=== PATIENT | female | born 1995 | race Caucasian/White ===

== ENCOUNTER 2021-01-11 07:25 | Emergency (ER) | payer MEDICAID, SELFPAY ==
[2021-01-11 07:27] VITALS: BP 122/61; PULSE 87; RESP 16; TEMP 36.2; O2SAT 100; BMI 25.7
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
--- NOTE | 2021-01-11 07:34 | US_ITS ---
STUDY: ABDOMINAL ULTRASOUND - RIGHT UPPER QUADRANT REASON FOR VISIT: Female, 25 years old PAIN TECHNIQUE: Ultrasound evaluation of the right upper quadrant was performed with real-time and static alfonso-scale imaging. TECHNICAL QUALITY: Adequate. COMPARISON: None. FINDINGS: Liver: The liver measures 15.3 cm. There is normal echogenicity of the liver. The bile ducts are within normal limits. There is hepatic color flow. The direction of portal flow is hepatopetal. There is no demonstrated mass lesion. Gallbladder: Normal distended gallbladder. The gallbladder wall measures 2 mm. There is a negative sonographic Larose''s sign. There is no pericholecystic fluid. There is biliary sludge dependent within the gallbladder And a 2 x 1.8 cm stone. There are small echogenic foci in the gallbladder wall with comet tail artifact are in keeping with adenomyomatosis. Extrahepatic biliary duct: The cystic duct appears dilated and contains debris/sludge. The common bile duct measures 6.7 mm and tapers gradually. Pancreas: Normal size of the head, body and tail of the pancreas. There is normal echogenicity of the pancreas. There is no demonstrated pancreatic mass or cyst. Right Kidney: Normal size of the right kidney. The right kidney measures 10.8 cm. Normal renal cortex. The right cortex measures 1.2 cm. There is no demonstrated renal mass or cyst. There is no right hydronephrosis. US/Gallbladder IMPRESSION: 1. Cystic duct appears dilated and contains debris/sludge. The CBD is just above the upper limits of normal, question CBD obstruction. Correlate clinically and with MRCP if felt to be clinically warranted. 2. No evidence of acute cholecystitis. There is gallbladder sludge and a single large stone. 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 Electronically Signed: Kali Angulo MD at 10:10 EDT Tel , Service support ,
[2021-01-11 08:00] LABS: Bacteria 0 SEEN /hpf (None Seen); Mucous, Urine 0 SEEN /hpf (<or=2+); Red Blood Cells-Urine 0 SEEN /hpf (0-5)
[2021-01-11 08:07] LABS: Color, Urine Yellow (Yellow); Glucose, Dipstick Normal (Normal); Ketone-Dipstick Negative (Negative); Leukocyte Esterase-Dipstick 25 /ul (Negative); Nitrite-Dipstick Negative (Negative); Occult Blood-Urine 25 /ul (Negative); Protein-Dipstick Negative (Negative); Urine Bilirubin Dipstick Negative (Negative); Urine Clarity Sl. Cloudy (Clear); Urine Urobilinogen Normal (Normal)
[2021-01-11] MEDS: Morphine 4 MG/ML Syringe IV (08:15)
[2021-01-11] MEDS: Ketorolac 15 MG/ML Vial IV (08:15)
[2021-01-11 08:16] LABS: Absolute Lymphocyte Count 2.64 X10^3/uL (0.83-4.51); Absolute Neutrophil Count 2.7 X10^3/uL (2.0-7.7); Basophil# 0.03 X10^3/uL; Basophil% 0.5 % (0-1); Eosinophil# 0.19 X10^3/uL; Eosinophils% 3.2 % (0-5); Hematocrit 42.8 % (37-47); Hemoglobin 13.7 g/dL (12.0-15.0); Lymphocyte # 2.64 X10^3/ul (0.83-4.51); Lymphocyte % 43.8 % (19-41); Mean Corpuscular Hgb 27.1 pg (27.0-32.0); Mean Corpuscular Volume 84.8 fL (81-99); Monocyte# 0.49 X10^3/uL; Monocyte% 8.1 % (0-10); NRBC Flagged by Analyzer 0 % (0-5); Neutrophil # 2.67 X10^3/uL (2.7-7.7); Neutrophil % 44.2 % (47-70); Platelet Count 247 K/mm3 (150-450); RBC Distribution Width CV 12.1 % (11.6-14.6); Red Blood Count 5.05 M/mm3 (4.2-5.4)
[2021-01-11 08:16] LABS: Squamous Epithelial Cells - UA 0-5 SEEN /hpf (5-10); White Blood Cells 0-5 SEEN /hpf (0-5)
[2021-01-11] MEDS: Ondansetron 4 MG/2 ML Vial IV (08:16)
[2021-01-11] MEDS: 0.9% Normal Saline 1,000 ML 1000 ML IV (08:16)
[2021-01-11 08:17] LABS: Internal QC Validated? YES +Cl - CLEAR BKGD; Pregnancy, Urine Negative Negative
[2021-01-11 08:25] VITALS: BP 117/70; O2SAT 100
[2021-01-11 08:31] LABS: AST(SGOT) 19 U/L (15-37); Alanine Aminotransfer ALT/SGPT 20 U/L (13-56); Albumin, Serum 3.6 g/dL (3.2-5.0); Alkaline Phosphatase 109 U/L (45-117); Anion Gap 5 (5-15); BUN 13 mg/dL (7-18); BUN/Creat Ratio 17.6 RATIO (10-20); Bilirubin, Direct 0.15 mg/dL (0.00-0.30); Calcium,Total 8.5 mg/dL (8.5-10.1); Chloride 107 mmol/L (98-107); Creatinine, Serum 0.74 mg/dL (0.55-1.02); EST Glomerular Filtration Rate 100 mL/min (>60); Est Glom Filt Rate - Afr Amer 121 mL/min (>60); Estimated Creatinine Clearance 94.46 ml/min; Globulin 3.9 g/dL (2.2-4.2); Glucose 88 mg/dL (74-106); Lipase 111 U/L (73-393); Potassium 3.7 mmol/L (3.5-5.1); Protein, Total 7.5 g/dL (6.4-8.2); Sodium Level 139 mmol/L (136-145)
== END 2021-01-11 10:25 | disposition home or self-care (01) ==
LOC: ED 07:48
PROVIDERS: Emergency Provider Emergency Medicine; PCP Student in an Organized Health Care Education/Training Program
DX: K80.50 Calculus of bile duct without cholangitis or cholecystitis without obstruction (principal)
CPT/HCPCS: 76705; 80048; 80076; 81001; 81025; 83690; 85025; 96361; 96374; 96375; 99283; J7030; J2405

== ENCOUNTER 2021-05-17 22:04 | Emergency (ER) | payer MEDICAID, SELFPAY ==
[2021-05-17 22:06] VITALS: BP 126/55; PULSE 80; RESP 18; TEMP 36.7; O2SAT 100; BMI 23.0
--- NOTE | 2021-05-17 22:12 | EDS_ITS ---
HPI History of Present Illness Chief Complaint: Laceration Narrative Narrative: Patient is a 25-year-old female who states she was cutting lettuce approximately 2 hours ago. She states by accident she cut the side of her left index finger. She states there is been bleeding since the cut despite having a bandage and she is concerned she may need sutures for this. She reports her tetanus status is up-to-date and she denies taking any blood thinners. [facility] Medical History Lupus Home Medications hydrocodone-acetaminophen 1 tab PO Q6H PRN PRN 3 Days #10 tablet 01/11/21 [Rx Last Taken Unknown] ondansetron 4 mg PO Q8H PRN PRN #10 tab 01/11/21 [Rx Last Taken Unknown] Allergy/AdvReac Type Severity Reaction Status Date / Time No Known Allergies Allergy Verified 05/17/21 22:08 Social History Smoking Status: Never smoker ROS ROS ED Constitutional Constitutional ED: Denies chills or fever(s) Cardiovascular Cardiovascular: Denies chest pain Respiratory/Chest Respiratory/Chest: Denies cough or dyspnea Gastrointestinal Gastrointestinal: Denies abdominal pain, diarrhea, nausea or vomiting Genitourinary Genitourinary ED: Denies dysuria Musculoskeletal Musculoskeletal: Denies myalgias Integumentary Reports other Details: Positive left index finger laceration ; Denies rash Neurologic Neurologic: Denies headache(s) Hematologic/Lymphatic Hematologic/Lymphatic: Denies easy bleeding or easy bruising EXAM Physical Exam Const Vital Signs: 05/17/21 22:06 Temperature 98.0 F Temperature Source Temporal Pulse Rate 80 Respiratory Rate 18 Blood Pressure 126/55 H Blood Pressure Mean 78 Pulse Ox 100 Oxygen Delivery Method Room Air Positive well nourished and well developed General Appearance ED: well developed HEENT Reports moist mucous membranes Eyes PERRL and EOMs intact bilaterally Neck full ROM and supple Resp normal respiratory effort and clear to auscultation bilaterally Cardio regular rate and regular rhythm Rate: regular rate Extremity Extremity Narrative: Left upper extremity is neurovascularly intact. Patient has a laceration to the lateral aspect of the left distal index finger near the nail bed but does not involve the nailbed. No bony deformity no ligamentous or tendon laxity noted. Neuro oriented x3, CN's II-XII intact bilaterally, moves all extremities, no focal motor deficits and no sensory deficits noted Sensorium / Orientation: alert Motor Exam: strength 5/5 throughout Psych mental status grossly normal Skin Skin Narrative: Patient has a linear 1 cm laceration to the lateral aspect of her left index finger. The laceration is lateral to the nailbed and horizontal in appearance. The wound is dermal layer deep with minimal ooze of blood and no foreign body. MDM MDM MDM Narrative Medical decision making narrative: Patient presented to the ER with a laceration to the left index finger. She had no signs of infection no signs of bony injury tendon or ligamentous injury so there is no need for imaging or laboratory studies. She also reported her tetanus status is up-to-date and did not want this given at this time. The wound was cleaned with chlorhexidine and then Dermabond was applied. The wound edges were held together good approximation and patient tolerated procedure well without complication. Now the wound is closed and there is no persistent bleeding patient is safe for discharge Discharge Plan Triage Chief Complaint: Laceration ED Provider: Horace Maldonado Dx/Rx/DC Orders Clinical Impression: Laceration of left index finger Instructions: ED Laceration, Extremity: Skin Glue Prescriptions: No Action hydrocodone-acetaminophen [hydrocodone-acetaminophen] 1 TABLET tablet 1 tab PO Q6H PRN PRN (Reason: Pain) 3 Days Qty: 10 RF: 0 ondansetron [ondansetron] 4 MG tablet 4 mg PO Q8H PRN PRN (Reason: Nausea) Qty: 10 RF: 0 Primary Care Provider: Ventura Marin Referrals: Ventura Marin DO [Primary Care Provider] - Disposition Disposition: Home, Self Care
== END 2021-05-17 22:49 | disposition home or self-care (01) ==
LOC: ED 22:38
PROVIDERS: Emergency Provider Emergency Medicine; PCP Student in an Organized Health Care Education/Training Program
DX: S61.211A Laceration without foreign body of left index finger without damage to nail, initial encounter (principal); W45.8XXA Other foreign body or object entering through skin, initial encounter
CPT/HCPCS: G0168; 99282

== ENCOUNTER 2022-02-10 23:16 | Emergency (ER) | payer MEDICAID, SELFPAY ==
[2022-02-10 23:17] VITALS: BP 126/69; PULSE 96; RESP 18; TEMP 36.1; O2SAT 97; BMI 24.4
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
[2022-02-11 00:46] LABS: Internal QC Validated? YES +Cl - CLEAR BKGD; Pregnancy, Urine Negative Negative
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
[2022-02-11 01:52] VITALS: BP 115/64; PULSE 87; RESP 14; O2SAT 100
== END 2022-02-11 01:53 | disposition home or self-care (01) ==
PROVIDERS: Emergency Provider Emergency Medicine; PCP Student in an Organized Health Care Education/Training Program; Visit Provider Emergency Medicine
DX: S09.90XA Unspecified injury of head, initial encounter (principal); S40.012A Contusion of left shoulder, initial encounter; S60.222A Contusion of left hand, initial encounter; Y04.8XXA Assault by other bodily force, initial encounter
CPT/HCPCS: 70450; 71101; 72072; 73030; 73130; 81025; 99285

== ENCOUNTER 2022-06-18 11:40 | Emergency (ER) | payer MEDICAID, SELFPAY ==
[2022-06-18 11:41] VITALS: BP 115/68; PULSE 125; RESP 16; TEMP 37.7; O2SAT 95; BMI 41.4
--- NOTE | 2022-06-18 12:29 | EDS_ITS ---
HPI History of Present Illness Chief Complaint: Fever Informant: patient Narrative Narrative: 26-year-old female presenting to the emergency room with a chief complaint of fever vomiting and diarrhea. Patient states that on Friday she woke with fever. She states her T-max of temporal temperature was 105.1 degrees. She states that she cannot swallow pills so it is hard for her to find medications to take but she has been using some Tylenol. Noted temperature in triage of 99.8. She notes that her lips are cracked and dried. She notes that she is making very little urine. She notes a sore throat and that her children had strep throat last week but did not have any of these other symptoms. She notes that she has been sleeping more than normal. She also associates with this a cough that is nonproductive. [facility] Medical History (Updated 06/18/22 @ 14:[address] Yazan Beach DO) Asthma Lupus Home Medications ondansetron HCl 4 mg tablet 4 mg PO Q6H PRN nausea and vomiting #15 tabs 06/18/22 [Rx Last Taken Unknown] Allergy/AdvReac Type Severity Reaction Status Date / Time No Known Allergies Allergy Verified 06/18/22 11:43 Social History (Updated 06/18/22 @ 12:[address] Yazan Beach DO) Smoking Status: Never smoker substance use type: does not use ROS ROS ED Constitutional Constitutional ED: Reports chills, fever(s) and other Details: Increased sleep ; Denies weight loss Eyes Eyes: Denies change in vision or diplopia ENT ENT ED: Reports sore throat; Denies ear pain or rhinorrhea Cardiovascular Cardiovascular: Denies chest pain, orthopnea, palpitations or racing heartbeat Respiratory/Chest Respiratory/Chest: Reports cough; Denies dyspnea or orthopnea Gastrointestinal Gastrointestinal: Reports diarrhea, nausea and vomiting; Denies abdominal pain Genitourinary Genitourinary ED: Denies dysuria, hematuria or urinary frequency Musculoskeletal Musculoskeletal: Denies arthralgias or myalgias Integumentary Denies abscess or rash Neurologic Neurologic: Denies headache(s) or weakness Psychiatric Psychiatric: Denies anxiety, depression, suicidal ideation or suicidal thoughts Endocrine Endocrinology: Denies polydipsia, polyphagia or polyuria Allergic/Immunologic Allergic/Immunologic ED: Denies mouth swelling, tongue swelling or urticaria EXAM Physical Exam Const Vital Signs: 06/18/22 11:41 06/18/22 12:53 06/18/22 12:53 Temperature 99.8 F H Temperature Source Temporal Pulse Rate 125 H 83 Respiratory Rate 16 16 Respiratory Effort Normal Respiratory Pattern Normal Blood Pressure 115/68 Blood Pressure Mean 83 Pulse Ox 95 94 Oxygen Delivery Method Room Air Room Air 06/18/22 14:51 Temperature Temperature Source Pulse Rate 96 Respiratory Rate 15 Respiratory Effort Respiratory Pattern Blood Pressure 110/70 Blood Pressure Mean Pulse Ox 98 Oxygen Delivery Method Positive well nourished and well developed General Appearance ED: well developed HEENT Reports normocephalic, head/scalp atraumatic and dry mucous membranes Mouth ED: Yes dry mucous membranes Mouth: dry mucous membranes Eyes PERRL and EOMs intact bilaterally Neck no lymphadenopathy, supple and no JVD Resp normal respiratory effort and clear to auscultation bilaterally Cardio regular rate and no murmurs Rate: tachycardic GI normal to inspection, nondistended, normoactive bowel sounds and non-tender Palpation: soft Back/Spine no CVA tenderness and normal ROM Extremity normal to inspection General Extremety ED: Negative for edema General Extremity: Negative for edema Neuro oriented x3 and CN's II-XII intact bilaterally Sensorium / Orientation: alert Motor Exam: strength 5/5 throughout Psych mental status grossly normal Mood & Affect: Negative for depressed or tearful Skin no rashes or lesions noted and no wounds MDM MDM MDM Narrative Medical decision making narrative: The patient received Toradol Zofran and IV fluids. White count is 8.2 with normal hemoglobin and platelet counts. CMP is negative except for glucose of 120. AST noted at 42. Patient is clinically well-hydrated after fluids. Heart rate is down. I think she most likely has a viral illness. I will write for some Zofran. Recommend follow-up as needed return if worsening or concerns Lab Data Attestation: I reviewed the patient's lab results. Labs: Laboratory Results - last 24 hr 06/18/22 06/18/22 12:43 12:43 WBC 8.2 RBC 4.63 Hgb 12.3 Hct 37.4 MCV 80.8 L MCH 26.6 L MCHC 32.9 RDW Std Deviation 40.2 RDW Coeff of [place] 13.6 Plt Count 197 MPV 10.3 Immature Gran % (Auto) 0.400 Neut % (Auto) 68.2 Lymph % (Auto) 21.1 [place] % (Auto) 9.2 Eos % (Auto) 0.1 Baso % (Auto) 1.0 Absolute Neuts (auto) 5.6 Absolute Lymphs (auto) 1.74 Nucleated RBC % 0 Sodium 137 Potassium 3.4 L Chloride 105 Carbon Dioxide 23.0 Anion Gap 9 BUN 11 Creatinine 0.81 Estim Creat Clear Calc 85.54 Est GFR (MDRD) Af Amer 107 Est GFR (MDRD) Non-Af 89 BUN/Creatinine Ratio 13.5 Glucose 120 H Calcium 8.6 Total Bilirubin 1.00 AST 42 H ALT 53 Alkaline Phosphatase 110 Total Protein 7.6 Albumin 3.3 Globulin 4.3 H Albumin/Globulin Ratio 0.8 L Discharge Plan Triage Chief Complaint: Fever ED Provider: Yazan Beach Dx/Rx/DC Orders Clinical Impression: Acute viral syndrome, Acute dehydration Instructions: ED Viral Syndrome (Adult) Prescriptions: New ondansetron HCl 4 mg tablet 4 mg PO Q6H PRN (Reason: nausea and vomiting) Qty: 15 0RF Primary Care Provider: Ventura Marin Referrals: Ventura Marin DO [Primary Care Provider] - As Needed Disposition Disposition: Home, Self Care Discharge Date/Time: 06/18/22 14:52
[2022-06-18 12:50] LABS: Absolute Lymphocyte Count 1.74 X10^3/uL (0.83-4.51); Absolute Neutrophil Count 5.6 X10^3/uL (2.0-7.7); Basophil# 0.08 X10^3/uL; Eosinophil# 0.01 X10^3/uL; Eosinophils% 0.1 % (0-5); Hematocrit 37.4 % (37-47); Hemoglobin 12.3 g/dL (12.0-15.0); Lymphocyte # 1.74 X10^3/ul (0.83-4.51); Lymphocyte % 21.1 % (19-41); Mean Corp Hgb Conc 32.9 g/dL (32-36); Mean Corpuscular Hgb 26.6 pg (27.0-32.0); Mean Corpuscular Volume 80.8 fL (81-99); Mean Platelet Vol. 10.3 fl (6.2-12.0); Monocyte# 0.76 X10^3/uL; Monocyte% 9.2 % (0-10); NRBC Flagged by Analyzer 0 % (0-5); Neutrophil # 5.62 X10^3/uL (2.7-7.7); Neutrophil % 68.2 % (47-70); Platelet Count 197 K/mm3 (150-450); RBC Distribution Width CV 13.6 % (11.6-14.6); RBC Distribution Width SD 40.2 fl (35.1-43.9); Red Blood Count 4.63 M/mm3 (4.2-5.4); White Blood Count 8.2 K/mm3 (4.4-11.0)
[2022-06-18] MEDS: Ondansetron 4 MG/2 ML Vial IV (12:51)
[2022-06-18] MEDS: 0.9% Normal Saline 1,000 ML 1000 ML IV (12:51)
[2022-06-18] MEDS: Ketorolac 30 MG/ML Syringe IV (12:52)
[2022-06-18 12:53] VITALS: PULSE 83; RESP 16; O2SAT 94
[2022-06-18 13:07] LABS: ALB/GLOB Ratio 0.8 RATIO (0.9-2.4); AST(SGOT) 42 U/L (15-37); Alanine Aminotransfer ALT/SGPT 53 U/L (13-56); Albumin, Serum 3.3 g/dL (3.2-5.0); Alkaline Phosphatase 110 U/L (45-117); Anion Gap 9 (5-15); BUN 11 mg/dL (7-18); BUN/Creat Ratio 13.5 RATIO (10-20); Calcium,Total 8.6 mg/dL (8.5-10.1); Chloride 105 mmol/L (98-107); Creatinine, Serum 0.81 mg/dL (0.55-1.02); EST Glomerular Filtration Rate 89 mL/min (>60); Est Glom Filt Rate - Afr Amer 107 mL/min (>60); Estimated Creatinine Clearance 85.54 ml/min; Globulin 4.3 g/dL (2.2-4.2); Glucose 120 mg/dL (74-106); Potassium 3.4 mmol/L (3.5-5.1); Protein, Total 7.6 g/dL (6.4-8.2); Sodium Level 137 mmol/L (136-145)
[2022-06-18 14:51] VITALS: BP 110/70; PULSE 96; RESP 15; O2SAT 98
== END 2022-06-18 14:52 | disposition home or self-care (01) ==
PROVIDERS: Emergency Provider Emergency Medicine; PCP Student in an Organized Health Care Education/Training Program; Visit Provider Emergency Medicine
DX: B34.9 Viral infection, unspecified (principal); E86.0 Dehydration
CPT/HCPCS: 80053; 85025; 87428; 96361; 96374; 96375; 99283; J7030; A4216; J2405

== ENCOUNTER 2022-06-20 20:21 | Emergency (ER) | payer MEDICAID, SELFPAY ==
[2022-06-20 20:21] VITALS: BP 109/58; PULSE 122; RESP 20; TEMP 37.2; O2SAT 97; BMI 23.7
[2022-06-20 20:28] VITALS: O2SAT 97
--- NOTE | 2022-06-20 20:42 | ED.VIS.DYS ---
HPI History of Present Illness Chief Complaint: Shortness of Breath Narrative Narrative: 26-year-old female past medical history of asthma and lupus states that she has not had an inhaler in a few years, recently had a borrow her son's because they were diagnosed with influenza. She states she has been feeling sick with viral syndrome/upper respiratory infection type symptoms since Friday, approximately 6 days ago. She had increasing shortness of breath and burning in her chest. She had fever and chills but those have resolved. She continues to feel short of breath, feeling like she needs an inhaler. She has been on steroids for her asthma in quite some time, although she states she has difficulty swallowing pills because of her lupus. She presents because of the continued shortness of breath. [facility] Medical History Asthma Lupus Home Medications ondansetron HCl 4 mg tablet 4 mg PO Q6H PRN nausea and vomiting #15 tabs 06/18/22 [Rx Last Taken Unknown] azithromycin 250 mg tablet See Rx Instructions PO .COMPLEX #6 tabs 06/20/22 [Rx Last Taken Unknown] Allergy/AdvReac Type Severity Reaction Status Date / Time No Known Allergies Allergy Verified 06/20/22 20:23 Social History Smoking Status: Never smoker substance use type: does not use ROS ROS ED ROS Narrative Constitutional: Resolved fever, no chills. HEENT: No sore throat. No neck pain. No loss of vision. No rhinorrhea. Cardiovascular: No chest pain. No palpitations. No pedal edema. Respiratory: Positive cough, positive shortness of breath. Abdominal: No abdominal pain. No nausea. No vomiting. Genitourinary: No dysuria. No hematuria. Musculoskeletal: No myalgias. No arthralgias. Neurologic: No headaches. No dizziness. No lightheadedness. Skin: No rash. No change in color. Psychiatric: No depression. No anxiety. EXAM Physical Exam Narrative Exam Narrative: Afebrile. Vital signs noted. HEENT: Normocephalic. Atraumatic. PERRL, EOMI. Neck soft and supple. No point tenderness or step off. Mild nasal congestion. Cardiovascular: Mild tachycardia no murmurs, rubs, or gallops appreciated. Respiratory: No tachypnea. Slightly prolonged expiratory phase. Occasional rhonchi. Gastrointestinal: Abdomen soft, nontender, with normoactive bowel sounds. No rebound or guarding. Neurological: Awake. Alert. Nonfocal, nonlateralizing. Skin: No rash. Normal color. No pallor. Musculoskeletal: No pedal edema. Full range of motion extremities. Const Vital Signs: 06/20/22 20:21 06/20/22 20:28 06/20/22 21:46 Temperature 99.0 F Temperature Source Temporal Pulse Rate 122 H Respiratory Rate 20 H 18 Respiratory Effort Normal Non-Labored Respiratory Depth Normal Respiratory Pattern Normal Blood Pressure 109/58 L Blood Pressure Mean 75 Pulse Ox 97 Oxygen Delivery Method Room Air Room Air MDM MDM MDM Narrative Medical decision making narrative: Patient has sick contacts at her children, stating they were diagnosed with influenza last week. Her pulse ox is 97% on room air without evidence of hypoxia. She is afebrile here. I do feel that she has more of a viral syndrome. Chest x-ray will be obtained. She was given an albuterol MDI. Additionally, since she states that she has problems swallowing pills, she was administered a Kenalog 40 mg intramuscular injection. Chest x-ray interpreted by myself shows bilateral upper lobe ill-defined consolidations concerning for multifocal pneumonia. Patient did not want to be swabbed for COVID-19. She will be treated with an azithromycin Z-Nasir. I have low concern for pulmonary embolism. At this point in time, she was written a prescription for a Z-Nasir. She will use her inhaler every 4-6 hours as needed and follow-up with her primary care provider. Return instructions to the emergency department were reviewed. Disposition is discharged home in stable condition. Radiography Diagnostic Testing: Clinical Impression(s) from Imaging Studies Chest X-Ray 06/20/22 20:50 IMPRESSION: 1. Bilateral, mostly upper lobe, ill-defined consolidations highly concerning for multifocal pneumonia. Electronically Signed: Everett Rivero DO at 21:15 EST , Discharge Plan Triage Chief Complaint: Shortness of Breath ED Provider: Dm Dumont Dx/Rx/DC Orders Clinical Impression: Multifocal pneumonia, Shortness of breath Instructions: ED Dyspnea, ED Pneumonia (Adult) Prescriptions: New azithromycin 250 mg tablet See Rx Instructions .ROUTE .COMPLEX Qty: 6 0RF Rx Instructions: For 250 mg dose pack: take 500 mg today (day 1), then 250 mg for 4 days (days 2-5) No Action ondansetron HCl 4 mg tablet 4 mg PO Q6H PRN (Reason: nausea and vomiting) Qty: 15 0RF Primary Care Provider: Ventura Marin Referrals: Ventura Marin, [Primary Care Provider] - 3-5 Days if not improving Disposition Disposition: Home, Self Care
[2022-06-20] MEDS: Triamcinolone Acetonide 40 MG/ML Vial IM (20:46)
[2022-06-20] MEDS: Albuterol Sulfate 8 gm Inhaler (60 puffs) 4 PUFF INHALATION (20:46)
--- NOTE | 2022-06-20 20:50 | RAD_ITS ---
INDICATION: shortness of breath EXAMINATION/TECHNIQUE: X-RAY - XR Chest 1 View COMPARISON: Rib x-rays 02/11/2022. FINDINGS: LINES/DEVICES: None. LUNGS: Symmetric normal lung volumes. Several areas of abnormal increased density right and left lung, more notable in the upper lobes, and highly suspicious for multifocal pneumonia. Thin linear opacity in the periphery of the right lung base, right costophrenic angle likely represents atelectasis. No nodule or mass. No pleural effusion or pneumothorax. MEDIASTINUM AND CARDIOVASCULAR STRUCTURES: Normal size and contour of the cardiomediastinal silhouette. No evidence of pulmonary vascular congestion. BONES AND SOFT TISSUES: No fracture or focal osseous lesion. RAD/Chest 1 View (Portable) IMPRESSION: 1. Bilateral, mostly upper lobe, ill-defined consolidations highly concerning for multifocal pneumonia. Electronically Signed: Everett Rivero DO at 21:15 EST ,
[2022-06-20 21:46] VITALS: PULSE 107; RESP 18; O2SAT 96
== END 2022-06-20 21:56 | disposition home or self-care (01) ==
PROVIDERS: Emergency Provider Emergency Medicine; PCP Student in an Organized Health Care Education/Training Program; Visit Provider Emergency Medicine
DX: J18.9 Pneumonia, unspecified organism (principal); R06.02 Shortness of breath
CPT/HCPCS: 71045; 96372; 99282; A4216

== ENCOUNTER 2023-01-23 18:28 | Emergency (ER) | payer MEDICAID, SELFPAY ==
[2023-01-23 18:30] VITALS: BP 105/44; PULSE 104; RESP 16; TEMP 37.2; O2SAT 100; BMI 24.0
--- NOTE | 2023-01-23 18:43 | ED.VIS.BACK ---
HPI History of Present Illness Chief Complaint: Back Informant: patient Narrative Narrative: Patient presents with left paraspinal back pain. Patient states that she got into bed Friday night. When she rolled over she got some soreness or tightness in her back. She did not think much of it. But a couple hours later she woke up and her back was very sore and she has been stiff. Every time she bends or moves it worsens it. There is no radicular symptoms. No fevers or chills. She does have a history of having back pains and other aches and pains. She states these are likely related to her lupus. She does not take medications for her lupus. The symptoms that she has is generally aches and pains from this. She put heat on it and it seemed better but now it seems a little bit worse. She denies any specific trauma. It did get worse today because she drove her child up to an medical appointment up in [place]. Therefore she had about an hour or so drive each way. That seem to make it worse. Staying still does not get better. She states sometimes the pain is bad and she feels a little nauseated but is never vomited. It is typical that she would get nauseated with pain or with medication. She also states that she cannot take pills because she just does not swallow them well. That is chronic. [facility] Medical History Asthma Lupus Home Medications ondansetron HCl 4 mg tablet 4 mg PO Q6H PRN nausea and vomiting #15 tabs 06/18/22 [Rx Last Taken Unknown] azithromycin 250 mg tablet See Rx Instructions PO .COMPLEX #6 tabs 06/20/22 [Rx Last Taken Unknown] cephalexin 250 mg/5 mL oral suspension 500 mg (10 mL) PO TID 7 days #210 mL 01/23/23 [Rx Last Taken Unknown] ondansetron 4 mg disintegrating tablet 4 mg PO Q8H PRN PRN Nausea #10 tabs 01/23/23 [Rx Last Taken Unknown] Allergy/AdvReac Type Severity Reaction Status Date / Time No Known Allergies Allergy Verified 01/23/23 18:31 Social History Smoking Status: Never smoker substance use type: does not use ROS ROS ED ROS Narrative A complete review of systems was performed and is negative except as documented in the history of present illness. Some specific details below. Constitutional: No recent fevers or chills. No rigors. Patient has not generally felt ill. No recent illness or infections. EYE: No discharge, visual complaints, or pain. ENT: No sinus pressure or pain. No nasal discharge. CV: No chest pain, pressure or aching. No palpitations or irregular beats. Patient has not been presyncopal or syncopal. Respiratory: No trouble breathing. No cough. No wheezing. No sputum production. No pain with breathing. GI: No abdominal pain. No nausea vomiting diarrhea. No blood in stool. No loss of bowel control. She states she is not urinating as much but because of taking her child up to [place] she really has not drank anything today. : No frequency dysuria or hematuria. No incontinence or urinary retention. No history of kidney stones. Musculoskeletal: No recent trauma. No swelling. Please see history of present illness. Skin: No rash. No diaphoresis. No vesicles. Neuro: No weakness or numbness. No pain of pain anywhere except the left paraspinal area. No weakness of ambulation. No sensory changes in the extremities. Please see history of present illness also. Endocrine: No polyuria or polydipsia. EXAM Physical Exam Narrative Exam Narrative: CONSTITUTIONAL: Patient is nontoxic in appearance. The patient looks comfortable. Work of breathing looks normal. She is laying on bed comfortably. HEENT: No notable trauma. Mucous membranes moist. No sinus tenderness. No sign of dental infection. EYES: No conjunctival injection. No pallor. NECK: No meningismus. No JVD. CARDIOVASCULAR: Regular rate at about 90 now. Regular rhythm. No notable murmur. No JVD. RESPIRATORY: No respiratory distress. Breathing is unlabored. No wheezes. No rhonchi. No rales. No pain with a deep breath. GASTROINTESTINAL: Not distended. Bowel sounds are normal. No tenderness. No guarding. No rebound. No palpable mass. No bruit. Overall, very benign exam. GENITOURINARY: No tenderness over the bladder. No isolated CVA tenderness. MUSCULOSKELETAL: Atraumatic. No peripheral edema. No cord. No tenderness along the deep venous system. No asymmetry. Distal pulses are intact. She does have some left paraspinal tenderness at about L2 or L3. There does appear to be a little spasm there as the muscle is firmer. There are no skin changes. No rash. NEUROLOGICAL: Patient is alert and oriented. No focal deficit noted. She has normal strength. Normal sensation. SKIN: No noted rashes. No diaphoresis. No vesicles noted. No notable pallor. PSYCHIATRIC: Patient is calm. Mood is appropriate. Const Vital Signs: 01/23/23 18:30 Temperature 99 F Temperature Source Temporal Pulse Rate 104 H Respiratory Rate 16 Blood Pressure 105/44 L Blood Pressure Mean 64 Pulse Ox 100 MDM MDM MDM Narrative Medical decision making narrative: Patient's urinalysis does show signs of UTI. She has bacteria white cells a few red cells leukocyte Estrace and nitrites with some mildly cloudy urine. I talk with her about this. She states she does have a history of frequent UTIs. But her pain was not sharp onset its not radiating. She has never had a kidney stone before. We would like to avoid doing CAT scan. Her symptoms are extremely motion related and she has palpable spasm. She feels much better after meds for pain and nausea. She is drinking Gatorade now without any difficulty and is drank an entire bottle. I think we can get her home with antibiotics. I explained if she gets worsening pain fevers or other concerns she should return. She states she has been on Keflex before for UTIs and that works well for her. I will write for suspension because she states she cannot take pills. Lab Data Attestation: I reviewed the patient's lab results. Labs: Laboratory Results - last 24 hr 01/23/23 19:22 Urine Color Yellow Urine Clarity Sl. Cloudy Urine pH 6.0 Ur Specific [place] 1.020 Urine Protein 30 H Urine Glucose (UA) Normal Urine Ketones 50 H Urine Occult Blood 250 H Urine Nitrite Positive H Urine Bilirubin Negative Urine Urobilinogen 4 H Ur Leukocyte Esterase 500 H Urine RBC 10-25 SEEN Urine WBC 25-50 SEEN Ur Squamous Epith Cells 0-5 SEEN Urine Bacteria 2+ Urine Mucus 0 SEEN Discharge Plan Triage Chief Complaint: Back ED Provider: David Dewey Dx/Rx/DC Orders Clinical Impression: UTI (urinary tract infection), Back pain Instructions: Urinary Tract Infections in Women Prescriptions: New cephalexin 250 mg/5 mL suspension for reconstitution 500 mg PO TID 7 Days Qty: 210 0RF ondansetron [ondansetron] 4 mg tablet,disintegrating 4 mg PO Q8H PRN PRN (Reason: Nausea) Qty: 10 0RF No Action ondansetron HCl 4 mg tablet 4 mg PO Q6H PRN (Reason: nausea and vomiting) Qty: 15 0RF azithromycin 250 mg tablet See Rx Instructions .ROUTE .COMPLEX Qty: 6 0RF Rx Instructions: For 250 mg dose pack: take 500 mg today (day 1), then 250 mg for 4 days (days 2-5) Primary Care Provider: Ventura Marin Referrals: Ventura Marin, [Primary Care Provider] - 1-2 Days if not improving Disposition Disposition: Home, Self Care
[2023-01-23] MEDS: Ketorolac 60 MG/2 ML Vial IM (18:56)
[2023-01-23] MEDS: Ondansetron ODT 4 MG Tablet PO (18:56)
[2023-01-23 19:26] LABS: Mucous, Urine 0 SEEN /hpf (<or=2+)
[2023-01-23 19:27] LABS: Color, Urine Yellow (Yellow); Glucose, Dipstick Normal (Normal); Ketone-Dipstick 50 mg/dl (Negative); Leukocyte Esterase-Dipstick 500 /ul (Negative); Nitrite-Dipstick Positive (Negative); Occult Blood-Urine 250 /ul (Negative); Protein-Dipstick 30 mg/dl (Negative); Urine Bilirubin Dipstick Negative (Negative); Urine Clarity Sl. Cloudy (Clear); Urine Urobilinogen 4 mg/dl (Normal)
[2023-01-23 19:33] LABS: Bacteria 2+ /hpf (None Seen); Red Blood Cells-Urine 10-25 SEEN /hpf (0-5); Squamous Epithelial Cells - UA 0-5 SEEN /hpf (5-10); White Blood Cells 25-50 SEEN /hpf (0-5)
[2023-01-23] MEDS: Cephalexin Suspension 250 MG/5 ML PO.SYRINGE 500 MG PO (20:56)
== END 2023-01-23 20:58 | disposition home or self-care (01) ==
PROVIDERS: Emergency Provider Emergency Medicine; PCP Student in an Organized Health Care Education/Training Program; Visit Provider Emergency Medicine
DX: N39.0 Urinary tract infection, site not specified (principal); M54.50 Low back pain, unspecified
CPT/HCPCS: 81001; 96372; 99283

== ENCOUNTER 2023-10-28 15:40 | Emergency (ER) | payer MEDICAID, SELFPAY ==
[2023-10-28 15:42] VITALS: BP 105/73; PULSE 66; PULSE 68; RESP 15; TEMP 36.7; O2SAT 100; BMI 24.3
--- NOTE | 2023-10-28 16:15 | EDS_ITS ---
HPI HPI - Female History of Present Illness Chief Complaint: Vag Bleeding Informant: patient Pain Pain: Positive for Pelvic Pain Onset: Days Context: Gradual Onset Timing: Continuous Quality: Positive for Cramping, Stabbing and - (Popping) Location: RLQ, LLQ, Suprapubic and Back Worsened by: - (Nothing) Relieved by: - (Nothing) Associated Symptoms Associated Symptoms: Positive for Hematuria Control: BTL Narrative Narrative: Patient presents with pelvic pain that has been getting progressively worse over the past 6 days. Patient states pain is mainly over her lower abdomen, hips, and low back. Patient describes it as popping, stabbing, and cramping. Patient denies any radiation of the pain. Patient states nothing makes it better and nothing makes it worse. Patient admits to some nausea but denies any vomiting. Patient admits to some urinary frequency. Patient also admits to a mild headache. Patient denies any fevers or chills. [facility] Medical History (Updated 10/28/23 @ 19:[address] Zak Lizarraga DO) Asthma Lupus Home Medications ondansetron HCl 4 mg tablet 4 mg PO Q6H PRN nausea and vomiting #15 tabs 06/18/22 [Rx Last Taken Unknown] azithromycin 250 mg tablet See Rx Instructions PO .COMPLEX #6 tabs 06/20/22 [Rx Last Taken Unknown] cephalexin 250 mg/5 mL oral suspension 500 mg (10 mL) PO TID 7 days #210 mL 01/23/23 [Rx Last Taken Unknown] ondansetron 4 mg disintegrating tablet 4 mg PO Q8H PRN PRN Nausea #10 tabs 01/23/23 [Rx Last Taken Unknown] Allergy/AdvReac Type Severity Reaction Status Date / Time No Known Allergies Allergy Verified 01/23/23 18:31 Surgical History History of section Hx of cholecystectomy Hx of tubal ligation Social History Smoking Status: Never smoker substance use type: does not use ROS ROS ED Constitutional Constitutional ED: Denies chills or fever(s) Eyes Eyes: Denies blurry vision or change in vision ENT ENT ED: Denies rhinorrhea or sore throat Cardiovascular Cardiovascular: Denies chest pain or palpitations Respiratory/Chest Respiratory/Chest: Denies cough or dyspnea Gastrointestinal Gastrointestinal: Reports abdominal pain and nausea; Denies vomiting Genitourinary Genitourinary ED: Reports urinary frequency; Denies dysuria or hematuria Musculoskeletal Musculoskeletal: Reports back pain; Denies neck pain Integumentary Denies abscess or rash Neurologic Neurologic: Reports headache(s); Denies weakness Allergic/Immunologic Allergic/Immunologic ED: Denies mouth swelling or urticaria EXAM Physical Exam Const Vital Signs: 10/28/23 15:42 10/28/23 15:42 10/28/23 17:42 Temperature 98.1 F 98.1 F Temperature Source Temporal Temporal Pulse Rate 68 66 87 Respiratory Rate 15 15 16 Blood Pressure 105/73 105/73 102/67 Blood Pressure Mean 83 83 78 Pulse Ox 100 100 99 Oxygen Delivery Method Room Air Room Air Room Air Positive well nourished and well developed General Appearance ED: well developed and NAD HEENT Reports moist mucous membranes Neck supple and no JVD Resp normal respiratory effort and clear to auscultation bilaterally Cardio regular rate and regular rhythm GI soft to palpation and non-distended Palpation: tender epigastric, LLQ, RLQ, LUQ, RUQ, periumbilical and suprapubic Extremity normal to inspection and full ROM Neuro oriented x3, CN's II-XII intact bilaterally and no sensory deficits noted Sensorium / Orientation: alert MDM MDM MDM Narrative Medical decision making narrative: Differential diagnosis includes urinary tract infection, ectopic , dysmenorrhea, gastroenteritis, and anxiety. CBC will be obtained to assess for leukocytosis and anemia. Basic metabolic profile will be obtained to assess for electrolyte abnormality and renal function. Urinalysis will be obtained to assess for urinary tract infection and hematuria. Serum hCG will be obtained to assess for . Lab Data Attestation: I reviewed the patient's lab results. Lab results narrative: CBC was reviewed and was within normal limits. Basic metabolic profile was reviewed and was within normal limits. Serum hCG was reviewed and was negative. Urinalysis was reviewed. There is no evidence of urinary tract infection noted. Labs: Laboratory Results - last 24 hr 10/28/23 10/28/23 16:16 17:00 WBC 5.4 RBC 4.78 Hgb 12.9 Hct 39.9 MCV 83.5 MCH 27.0 MCHC 32.3 RDW Std Deviation 37.6 RDW Coeff of [place] 12.4 Plt Count 291 MPV 10.1 Immature Gran % (Auto) 0.200 Neut % (Auto) 48.2 Lymph % (Auto) 41.1 H [place] % (Auto) 7.7 Eos % (Auto) 2.2 Baso % (Auto) 0.6 Absolute Neuts (auto) 2.6 Absolute Lymphs (auto) 2.20 Nucleated RBC % 0 Sodium 138 Potassium 3.7 Chloride 106 Carbon Dioxide 27.0 Anion Gap 5 BUN 14 Creatinine 0.79 Estim Creat Clear Calc 86.92 Est GFR (MDRD) Af Amer 110 Est GFR (MDRD) Non-Af 91 BUN/Creatinine Ratio 17.7 Glucose 105 Calcium 9.2 Serum , Qual NEGATIVE Urine Color Yellow Urine Clarity Clear Urine pH 7.0 Ur Specific [place] 1.015 Urine Protein 15 H Urine Glucose (UA) Normal Urine Ketones Negative Urine Occult Blood 250 H Urine Nitrite Negative Urine Bilirubin Negative Urine Urobilinogen Normal Ur Leukocyte Esterase Negative Urine RBC 10-25 SEEN Urine WBC 0 SEEN Ur Squamous Epith Cells 0-5 SEEN Urine Bacteria 0 SEEN Urine Mucus 0 SEEN Treatment and Re-Evaluation Narrative: Patient was given IV fluids, morphine, Zofran. Patient is feeling better on reevaluation. Patient was advised of her findings. Patient was instructed to follow-up with her primary care physician and [facility] in 5 to 7 days. Patient was instructed to return if worse in any way. Patient understood and was agreeable with the plan. All questions were answered. Discharge Plan Triage Chief Complaint: Vag Bleeding ED Provider: Zak Lizarraga Dx/Rx/DC Orders Clinical Impression: Pelvic pain, Dysmenorrhea Instructions: ED Dysfunctional Uterine Bleeding Prescriptions: No Action ondansetron HCl 4 mg tablet 4 mg PO Q6H PRN (Reason: nausea and vomiting) Qty: 15 0RF azithromycin 250 mg tablet See Rx Instructions .ROUTE .COMPLEX Qty: 6 0RF Rx Instructions: For 250 mg dose pack: take 500 mg today (day 1), then 250 mg for 4 days (days 2-5) cephalexin 250 mg/5 mL suspension for reconstitution 500 mg PO TID 7 Days Qty: 210 0RF ondansetron [ondansetron] 4 mg tablet,disintegrating 4 mg PO Q8H PRN PRN (Reason: Nausea) Qty: 10 0RF Primary Care Provider: Ventura Marin Referrals: Ventura Marin DO [Primary Care Provider] - 3-5 Days Disposition Disposition: Home, Self Care
[2023-10-28 16:32] LABS: Absolute Neutrophil Count 2.6 X10^3/uL (2.0-7.7); Basophil# 0.03 X10^3/uL; Basophil% 0.6 % (0-1); Eosinophil# 0.12 X10^3/uL; Eosinophils% 2.2 % (0-5); Hematocrit 39.9 % (37-47); Hemoglobin 12.9 g/dL (12.0-15.0); Lymphocyte % 41.1 % (19-41); Mean Corp Hgb Conc 32.3 g/dL (32-36); Mean Corpuscular Volume 83.5 fL (81-99); Mean Platelet Vol. 10.1 fl (6.2-12.0); Monocyte# 0.41 X10^3/uL; Monocyte% 7.7 % (0-10); NRBC Flagged by Analyzer 0 % (0-5); Neutrophil # 2.58 X10^3/uL (2.7-7.7); Neutrophil % 48.2 % (47-70); Platelet Count 291 K/mm3 (150-450); RBC Distribution Width CV 12.4 % (11.6-14.6); RBC Distribution Width SD 37.6 fl (35.1-43.9); Red Blood Count 4.78 M/mm3 (4.2-5.4); White Blood Count 5.4 K/mm3 (4.4-11.0)
[2023-10-28] MEDS: 0.9% Normal Saline (1000mL) 1,000 ML 1000 ML IV (16:33)
[2023-10-28] MEDS: Ondansetron 4 MG/2 ML Vial IV (16:33)
[2023-10-28] MEDS: Morphine 4 MG/ML Syringe IV (16:33)
[2023-10-28 16:46] LABS: Anion Gap 5 (5-15); BUN 14 mg/dL (7-18); BUN/Creat Ratio 17.7 RATIO (10-20); Calcium,Total 9.2 mg/dL (8.5-10.1); Chloride 106 mmol/L (98-107); Creatinine, Serum 0.79 mg/dL (0.55-1.02); EST Glomerular Filtration Rate 91 mL/min (>60); Est Glom Filt Rate - Afr Amer 110 mL/min (>60); Estimated Creatinine Clearance 86.92 ml/min; Glucose 105 mg/dL (74-106); Potassium 3.7 mmol/L (3.5-5.1); Sodium Level 138 mmol/L (136-145)
[2023-10-28 16:52] LABS: Internal QC Validated? YES +Cl - CLEAR BKGD; Pregnancy, Serum, hCG Quali. NEGATIVE Negative
[2023-10-28 17:13] LABS: Bacteria 0 SEEN /hpf (None Seen); Mucous, Urine 0 SEEN /hpf (<or=2+); White Blood Cells 0 SEEN /hpf (0-5)
[2023-10-28 17:15] LABS: Color, Urine Yellow (Yellow); Glucose, Dipstick Normal (Normal); Ketone-Dipstick Negative (Negative); Leukocyte Esterase-Dipstick Negative /ul (Negative); Nitrite-Dipstick Negative (Negative); Occult Blood-Urine 250 /ul (Negative); Protein-Dipstick 15 mg/dl (Negative); Specific Gravity, Urine 1.015 (1.002-1.030); Urine Bilirubin Dipstick Negative (Negative); Urine Clarity Clear (Clear); Urine Urobilinogen Normal (Normal)
[2023-10-28 17:23] LABS: Red Blood Cells-Urine 10-25 SEEN /hpf (0-5); Squamous Epithelial Cells - UA 0-5 SEEN /hpf (5-10)
[2023-10-28 17:42] VITALS: BP 102/67; PULSE 87; RESP 16; O2SAT 99
[2023-10-28 19:00] VITALS: BP 107/67; PULSE 89; RESP 16; O2SAT 98
[2023-10-28 19:05] VITALS: BP 107/67; PULSE 67; RESP 18; TEMP 36.7; O2SAT 98
== END 2023-10-28 19:07 | disposition home or self-care (01) ==
PROVIDERS: Emergency Provider Emergency Medicine; PCP Student in an Organized Health Care Education/Training Program; Visit Provider Emergency Medicine
DX: N94.6 Dysmenorrhea, unspecified (principal)
CPT/HCPCS: 80048; 81001; 84703; 85025; 96361; 96374; 96375; 99282; J7030; A4216; J2405

== ENCOUNTER 2024-01-16 22:30 | Emergency (ER) | payer MEDICAID, SELFPAY ==
[2024-01-16 22:31] VITALS: BP 122/71; PULSE 84; RESP 16; TEMP 36.7; O2SAT 100; BMI 25.7
--- NOTE | 2024-01-16 22:53 | CT_ITS ---
EXAM: CT Abdomen And Pelvis W/ Contrast Injection HISTORY: RLQ pain TECHNIQUE: Routine protocol CT abdomen pelvis. IV Contrast: IV 100mL Isovue-370 . Oral Contrast: without. Sagittal and coronal images were reconstructed. RADIATION DOSAGE (If Supplied By Facility): CTDIvol = ( 11.42 ) mGy, DLP = ( 644.27 ) mGycm Individualized dose optimization techniques were used for this CT. COMPARISON: None. LIMITATIONS: None. FINDINGS: LOWER CHEST: Reticular opacities in the right lung base likely scarring. LIVER: Unremarkable. GALLBLADDER/BILE DUCTS: Gallbladder not identified, presumed surgically absent.. PANCREAS: Unremarkable. SPLEEN: Unremarkable. ADRENAL GLANDS: Unremarkable. KIDNEYS / URETERS: Unremarkable. BOWEL / MESENTERY: Unremarkable. No bowel obstruction. APPENDIX: Identified and normal. No evidence of acute appendicitis. PERITONEUM: No free air. Small amount of free fluid in the pelvis. VESSELS: Abdominal aorta is normal caliber. RETROPERITONEUM: Unremarkable. REPRODUCTIVE ORGANS: Uterus is lobulated likely small fibroid. Surgical clips in the right adnexal region. 2 cm collapsing cyst or follicle in the left ovary. BLADDER: Unremarkable. ABDOMINAL WALL: Unremarkable. BONES: No acute abnormality. OTHER: None. CT/Abdomen/Pelvis W IV Cont ONLY IMPRESSION: No acute findings. No evidence of acute appendicitis. Electronically Signed: Thais Taylor MD at 1:09 EDT ,
[2024-01-16 23:06] VITALS: BP 110/74; RESP 16
[2024-01-16] MEDS: 0.9% Normal Saline (1000mL) 1,000 ML 999 ML IV (23:06)
[2024-01-16] MEDS: Ondansetron 4 MG/2 ML Vial IV (23:07)
[2024-01-16] MEDS: Morphine 4 MG/ML Syringe IV (23:07)
[2024-01-16 23:17] LABS: Bacteria 0 SEEN /hpf (None Seen); Mucous, Urine 0 SEEN /hpf (<or=2+); Red Blood Cells-Urine 0 SEEN /hpf (0-5); Squamous Epithelial Cells - UA 0 SEEN /hpf (5-10); White Blood Cells 0 SEEN /hpf (0-5)
[2024-01-16 23:19] LABS: Absolute Lymphocyte Count 3.36 X10^3/uL (0.83-4.51); Absolute Neutrophil Count 3.5 X10^3/uL (2.0-7.7); Basophil# 0.06 X10^3/uL; Basophil% 0.8 % (0-1); Eosinophil# 0.21 X10^3/uL; Eosinophils% 2.7 % (0-5); Hematocrit 38.6 % (37-47); Hemoglobin 12.2 g/dL (12.0-15.0); Lymphocyte # 3.36 X10^3/ul (0.83-4.51); Mean Corp Hgb Conc 31.6 g/dL (32-36); Mean Corpuscular Hgb 26.3 pg (27.0-32.0); Mean Corpuscular Volume 83.2 fL (81-99); Mean Platelet Vol. 10.2 fl (6.2-12.0); Monocyte# 0.53 X10^3/uL; Monocyte% 6.9 % (0-10); NRBC Flagged by Analyzer 0 % (0-5); Neutrophil # 3.46 X10^3/uL (2.7-7.7); Neutrophil % 45.3 % (47-70); Platelet Count 273 K/mm3 (150-450); RBC Distribution Width CV 12.6 % (11.6-14.6); Red Blood Count 4.64 M/mm3 (4.2-5.4); White Blood Count 7.6 K/mm3 (4.4-11.0)
[2024-01-16 23:26] LABS: Color, Urine Yellow (Yellow); Glucose, Dipstick Normal (Normal); Ketone-Dipstick Negative (Negative); Leukocyte Esterase-Dipstick 25 /ul (Negative); Nitrite-Dipstick Negative (Negative); Occult Blood-Urine Negative /ul (Negative); Protein-Dipstick Negative (Negative); Urine Bilirubin Dipstick Negative (Negative); Urine Clarity Clear (Clear); Urine Urobilinogen Normal (Normal)
[2024-01-16 23:33] LABS: Anion Gap 3 (5-15); BUN 15 mg/dL (7-18); BUN/Creat Ratio 17.9 RATIO (10-20); CRP 4.93 mg/L (0.0-3.0); Calcium,Total 8.8 mg/dL (8.5-10.1); Chloride 106 mmol/L (98-107); Creatinine, Serum 0.84 mg/dL (0.55-1.02); EST Glomerular Filtration Rate 85 mL/min (>60); Est Glom Filt Rate - Afr Amer 102 mL/min (>60); Estimated Creatinine Clearance 87.14 ml/min; Glucose 83 mg/dL (74-106); Internal QC Validated? YES +Cl - CLEAR BKGD; Potassium 3.4 mmol/L (3.5-5.1); Pregnancy, Urine Negative Negative; Sodium Level 136 mmol/L (136-145)
[2024-01-17 01:00] VITALS: BP 115/75; PULSE 87; RESP 16; TEMP 36.8; O2SAT 100
--- NOTE | 2024-01-17 01:22 | EDS_ITS ---
HPI History of Present Illness Chief Complaint: Flank Pain Informant: patient and spouse/S.O. Narrative Narrative: Patient is a 28-year-old female with past medical history of lupus. 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 She reports she has had some right-sided low back pain that is worse with motion but denies any direct trauma or excessive activity. She states that the pain now radiates towards the right hip/groin and with the change in symptoms comes in for evaluation. She denies any loss of bowel or bladder control or IV drug use and she denies any dysuria or hematuria. [facility] Medical History (Updated 01/17/24 @ 01:[address] Horace Maldonado, ) Asthma Lupus Home Medications ?Medication ?Instructions ?Recorded ?Last Taken ?Type albuterol sulfate 90 mcg/actuation 1 puff inhalation Q4H PRN PRN 01/16/24 Unknown History aerosol inhaler wheezing methocarbamol 500 mg tablet 1,000 mg (2 x 500 mg) PO 4X/DAY 01/17/24 Unknown Rx PRN Muscle pain/spasm #56 tabs oxycodone-acetaminophen 5 mg-325 1 tab PO Q6H PRN pain 3 days #12 01/17/24 Unknown Rx mg tablet (Percocet) tabs Allergy/AdvReac Type Severity Reaction Status Date / Time aloe Allergy Mild Hives Verified 01/16/24 22:42 Surgical History (Updated 01/16/24 @ 22:38 by Margie Stallings) History of D&C Hx of cholecystectomy Hx of tubal ligation History of section Social History Smoking Status: Never smoker substance use type: does not use ROS ROS ED Constitutional Constitutional ED: Denies chills or fever(s) Eyes Eyes: Denies change in vision ENT ENT ED: Denies sore throat Cardiovascular Cardiovascular: Denies chest pain Respiratory/Chest Respiratory/Chest: Denies cough or dyspnea Gastrointestinal Gastrointestinal: Reports abdominal pain and nausea; Denies diarrhea or vomiting Genitourinary Genitourinary ED: Denies dysuria or hematuria Musculoskeletal Musculoskeletal: Reports back pain Integumentary Denies rash Neurologic Neurologic: Denies headache(s) Hematologic/Lymphatic Hematologic/Lymphatic: Denies easy bleeding or easy bruising EXAM Physical Exam Const Vital Signs: 01/16/24 22:31 01/16/24 23:06 01/17/24 01:00 Temperature 98.1 F 98.3 F Temperature Source Temporal Pulse Rate 84 87 Respiratory Rate 16 16 16 Blood Pressure 122/71 H 110/74 115/75 Blood Pressure Mean 88 86 88 Pulse Ox 100 100 Oxygen Delivery Method Room Air Positive well nourished and well developed General Appearance ED: well developed; Negative for pallor HEENT HEENT Narrative: Normocephalic atraumatic Eyes PERRL and EOMs intact bilaterally General Eye ED: Negative for pale conjunctiva or scleral icterus Neck supple Resp normal respiratory effort and clear to auscultation bilaterally Cardio regular rate and regular rhythm Rate: other Other Details: Heart is regular rate and rhythm without murmurs rubs or gallops Radial and carotid pulses are equal and symmetric GI non-distended and no masses GI Narrative: Abdomen is soft and nondistended with normal active bowel sounds. Patient has pain on palpation in the right lower quadrant. There is no associated guarding or rigidity. No pulsatile mass or fluid wave. Auscultation: normoactive bowel sounds Palpation: soft Back/Spine Back/Spine Narrative: Positive right CVA pain noted No bony deformity or step-off of the thoracic or lumbar spine no midline tenderness to palpation There is mild right paralumbar tension and spasm noted that worsens with extension and rotation No saddle anesthesia. Negative straight leg raise. No clonus or Babinski. Patellar reflexes are plus 2 out of 4 bilaterally Extremity normal to inspection Neuro oriented x3, CN's II-XII intact bilaterally and no sensory deficits noted Sensorium / Orientation: alert Motor Exam: strength 5/5 throughout Psych mental status grossly normal Skin no rashes or lesions noted and no wounds General Skin Exam: Negative for jaundice or pallor MDM MDM MDM Narrative Medical decision making narrative: Patient arrived to the ER with stable vitals. With pain along the right CVA and low back region as well as right abdomen there is concern for kidney stone versus UTI versus pyelonephritis versus appendicitis versus ovarian cyst versus lumbosacral strain. Secondary to this basic labs were obtained with urine sample and a CT scan of the abdomen and pelvis was ordered as well. Labs revealed no clinically significant findings and CAT scan showed left-sided ovarian cyst but no right-sided lesion and no obvious signs of acute appendicitis or kidney stone. Therefore at this time as overall workup is negative and patient does have increased pain with motion and works a manual labor job I feel this is most likely lumbosacral strain. She be placed on some type medications and otherwise safe for discharge with outpatient follow-up History & Record Review Discussion w/independent historian: Patient and Significant other Lab Data Attestation: I reviewed the patient's lab results. Labs: Laboratory Results - last 24 hr 01/16/24 23:08 WBC 7.6 RBC 4.64 Hgb 12.2 Hct 38.6 MCV 83.2 MCH 26.3 L MCHC 31.6 L RDW Std Deviation 38.0 RDW Coeff of [place] 12.6 Plt Count 273 MPV 10.2 Immature Gran % (Auto) 0.300 Neut % (Auto) 45.3 L Lymph % (Auto) 44.0 H [place] % (Auto) 6.9 Eos % (Auto) 2.7 Baso % (Auto) 0.8 Absolute Neuts (auto) 3.5 Absolute Lymphs (auto) 3.36 Nucleated RBC % 0 Sodium 136 Potassium 3.4 L Chloride 106 Carbon Dioxide 27.0 Anion Gap 3 L BUN 15 Creatinine 0.84 Estim Creat Clear Calc 87.14 Est GFR (MDRD) Af Amer 102 Est GFR (MDRD) Non-Af 85 BUN/Creatinine Ratio 17.9 Glucose 83 Calcium 8.8 C-React Prot Ext Range 4.93 H Urine Color Yellow Urine Clarity Clear Urine pH 7.0 Ur Specific [place] 1.010 Urine Protein Negative Urine Glucose (UA) Normal Urine Ketones Negative Urine Occult Blood Negative Urine Nitrite Negative Urine Bilirubin Negative Urine Urobilinogen Normal Ur Leukocyte Esterase 25 H Urine RBC 0 SEEN Urine WBC 0 SEEN Ur Squamous Epith Cells 0 SEEN Urine Bacteria 0 SEEN Urine Mucus 0 SEEN Urine Test Negative Radiography Diagnostic Testing: Clinical Impression(s) from Imaging Studies Abdomen/Pelvis CT 01/16/24 22:53 IMPRESSION: No acute findings. No evidence of acute appendicitis. Electronically Signed: Thais Taylor MD at 1:09 EDT , Discharge Plan Triage Chief Complaint: Flank Pain ED Provider: Horace Maldonado Dx/Rx/DC Orders Clinical Impression: Nonspecific abdominal pain, Lupus (systemic lupus erythematosus), Ovarian cyst, Acute lumbosacral myofascial strain Instructions: Abdominal Pain Prescriptions: New oxycodone-acetaminophen [Percocet] 5-325 mg tablet 1 tab PO Q6H PRN (Reason: pain) 3 Days Qty: 12 0RF methocarbamol 500 mg tablet 1,000 mg PO 4X/DAY PRN (Reason: Muscle pain/spasm) Qty: 56 0RF No Action albuterol sulfate 90 mcg/actuation HFA aerosol inhaler 1 puff inhalation Q4H PRN PRN (Reason: wheezing) Primary Care Provider: Ventura Marin Referrals: Ventura Marin DO [Primary Care Provider] - Activity Restrictions/Additional Instructions: Your workup today showed a left-sided ovarian cyst but otherwise no sign of intestinal infection such as appendicitis or signs of kidney stone. Your urine also shows no sign of infection. Follow-up with your family doctor and/or [facility] for repeat evaluation and return to the ER should you have any further concerns Print Language: [place] Disposition Disposition: Home, Self Care Discharge Date/Time: 01/17/24 01:37
[2024-01-17] MEDS: oxyCODONE 5 MG Tablet 10 MG PO (01:33)
== END 2024-01-17 01:37 | disposition home or self-care (01) ==
PROVIDERS: Emergency Provider Emergency Medicine; PCP Student in an Organized Health Care Education/Training Program; Visit Provider Emergency Medicine
DX: R10.9 Unspecified abdominal pain (principal); M32.9 Systemic lupus erythematosus, unspecified; S39.012A Strain of muscle, fascia and tendon of lower back, initial encounter; N83.209 Unspecified ovarian cyst, unspecified side; Z90.49 Acquired absence of other specified parts of digestive tract; Z98.51 Tubal ligation status; X58.XXXA Exposure to other specified factors, initial encounter; Y93.89 Activity, other specified; Y92.89 Other specified places as the place of occurrence of the external cause
CPT/HCPCS: 74177; 80048; 81001; 81025; 85025; 86140; 96361; 96374; 96375; 99284; J7030; Q9967; A4216; J2405